=== PATIENT | male | born 1945 | race Caucasian/White ===

== ENCOUNTER 2019-09-07 12:33 | Inpatient (IN) | payer MEDICARE, OTHER ==
[~2019-09-07] VITALS: Ht 182.9 cm; Wt 68.9 kg
[2019-09-07] VITALS (16 sets, daily range): BP systolic 96–126; BP diastolic 57–70
[~2019-09-07 12:33] MED LIST: ASPI-630 PO; ATOR40TA59 PO; CHOL10003 PO; CLOP75TA PO; CYAN25002 SL; FAMO20TA5 PO; GUAI-108 PO; METO25TA4 PO; PANT40TA77 PO
[2019-09-07] MEDS ORDERED: ONDANSETRON PF 4 MG/2 ML VIAL. IV PRN (12:45)
[2019-09-07 12:53] LABS: BASO # 0.1 x10^3/uL (0.0-0.2); BASO % 1 % (0-3); EOS # 0.1 x10^3/uL (0.0-0.7); EOS % 2 % (0-3); HEMATOCRIT 45.8 % (39.0-53.0); HEMOGLOBIN 15.5 g/dL (13.0-17.5); LYMPH % 48 % (24-48); MEAN CORPUSCULAR HEMOGLOBIN 35 pg (25-35); MEAN CORPUSCULAR HGB CONC 34 g/dL (31-37); MEAN CORPUSCULAR VOLUME 103 fL (79-100); MONO # 0.7 x10^3/uL (0.0-1.1); MONO % 8 % (0-9); NEUT # 3.5 x10^3/uL (1.8-7.7); NEUT % 42 % (31-73); PLATELET COUNT 242 x10^3/uL (140-400); RED BLOOD COUNT 4.46 x10^6/uL (4.30-5.70); RED CELL DISTRIBUTION WIDTH 14.5 % (11.5-14.5); WHITE BLOOD COUNT 8.4 x10^3/uL (4.0-11.0)
--- NOTE | 2019-09-07 12:57 | PHYS DOC ---
Past Medical History Past Medical History: GERD, High Cholesterol, Hypertension Past Surgical History: Appendectomy Additional Past Surgical Histo: CARDIAC STENT PLACEMENT Alcohol Use: Occasionally Drug Use: None Adult General HPI HPI Patient is a 74 year old male who was brought here by EMS due to chest pain and trouble breathing started about 1 hour ago. EMS did EKG on the field, shown ST elevation in the in the inferior lead, EMS call here, we activated code STEMI. He has history of hypertension, previous coronary disease. No history of diabetes. Patient denies any injury. Patient also complaint of stomach ache. He denies any nausea vomiting. Upon Arrival to room, patient was in obvious distress. All other ROS is negative unless otherwise noted in HPI Review of Systems Review of Systems See above Current Medications Current Medications Allergies Allergies Allergies Coded Allergies Type Severity Reaction Last Updated Verified No Known Drug Allergies 10/06/16 No Physical Exam Physical Exam See above Constitutional: Well developed, well nourished, in moderate acute distress, appeared pale. HENT: Normocephalic, atraumatic, bilateral external ears normal, oropharynx moist, no oral exudates, nose normal. [] Eyes: PERRLA, EOMI, conjunctiva normal, no discharge. [] Neck: Normal range of motion, no tenderness, supple, no stridor. [] Cardiovascular:Heart rate regular rhythm, no murmur [] Lungs & Thorax: Bilateral breath sounds clear to auscultation [] Abdomen: Bowel sounds normal, soft, no tenderness, no masses, no pulsatile masses. [] Skin: Warm, dry, no erythema, no rash. [] Back: No tenderness, no CVA tenderness. [] Extremities: No tenderness, no cyanosis, no clubbing, ROM intact, no edema. [] Neurologic: Alert and oriented X 3, normal motor function, normal sensory function, no focal deficits noted. [] Psychologic: Affect normal, judgement normal, mood normal. [] Current Patient Data Vital Signs Vital Signs Date Time Temp Pulse Resp B/P (MAP) Pulse Ox O2 Delivery O2 Flow Rate FiO2 09/07/19 12:33 94.4 72 34 118/66 (83) 99 Nasal Cannula 6.0 94.4 Lab Values Laboratory Tests Test 09/07/19 12:40 White Blood Count 8.4 x10^3/uL (4.0-11.0) Red Blood Count 4.46 x10^6/uL (4.30-5.70) Hemoglobin 15.5 g/dL (13.0-17.5) Hematocrit 45.8 % (39.0-53.0) Mean Corpuscular Volume 103 fL (79-100) H Mean Corpuscular Hemoglobin 35 pg (25-35) Mean Corpuscular Hemoglobin Concent 34 g/dL (31-37) Red Cell Distribution Width 14.5 % (11.5-14.5) Platelet Count 242 x10^3/uL (140-400) Neutrophils (%) (Auto) 42 % (31-73) Lymphocytes (%) (Auto) 48 % (24-48) Monocytes (%) (Auto) 8 % (0-9) Eosinophils (%) (Auto) 2 % (0-3) Basophils (%) (Auto) 1 % (0-3) Neutrophils # (Auto) 3.5 x10^3/uL (1.8-7.7) Lymphocytes # (Auto) 4.0 x10^3/uL (1.0-4.8) Monocytes # (Auto) 0.7 x10^3/uL (0.0-1.1) Eosinophils # (Auto) 0.1 x10^3/uL (0.0-0.7) Basophils # (Auto) 0.1 x10^3/uL (0.0-0.2) Prothrombin Time 12.2 SEC (11.7-14.0) Prothrombin Time INR 0.9 (0.8-1.1) Activated Partial Thromboplast Time 26 SEC (24-38) Sodium Level 139 mmol/L (136-145) Potassium Level 4.2 mmol/L (3.5-5.1) Chloride Level 102 mmol/L (98-107) Carbon Dioxide Level 21 mmol/L (21-32) Anion Gap 16 (6-14) H Blood Urea Nitrogen 11 mg/dL (8-26) Creatinine 1.2 mg/dL (0.7-1.3) Estimated GFR (Cockcroft-Gault) 59.3 BUN/Creatinine Ratio 9 (6-20) Glucose Level 140 mg/dL (70-99) H Calcium Level 9.1 mg/dL (8.5-10.1) Magnesium Level 2.0 mg/dL (1.8-2.4) Total Bilirubin 0.5 mg/dL (0.2-1.0) Aspartate Amino Transferase (AST) 15 U/L (15-37) Alanine Aminotransferase (ALT) 15 U/L (16-63) L Alkaline Phosphatase 97 U/L (46-116) Troponin I Quantitative < 0.017 ng/mL (0.000-0.055) BC-Wni-Q-Type Natriuretic Peptide 203 pg/mL (0-124) H Total Protein 7.6 g/dL (6.4-8.2) Albumin 3.8 g/dL (3.4-5.0) Albumin/Globulin Ratio 1.0 (1.0-1.7) Lipase 134 U/L (73-393) Laboratory Tests 09/07/19 12:40 Laboratory Tests 09/07/19 12:40 EKG EKG EKG WAS READ BY THIS PHYSICIAN AT 1239, RATE OF 70 BPM, ST SEGMENT ELEVATION IN II, III, AVF, WITH SEGMENT DEPRESSION IN V2, V3, V4, V5, V6 Radiology/Procedures Radiology/Procedures [] Course & Med Decision Making Course & Med Decision Making Pertinent Labs and Imaging studies reviewed. (See chart for details) EKG was shown STEMI, ECOLOGICAL MODEL[employer] TE[employer] AND [employer], Dr. Alba WAS presented , took patient to labor operator urgently. Dragon Disclaimer Dragon Disclaimer This electronic medical record was generated, in whole or in part, using a voice recognition dictation system. Departure Departure Impression: Primary Impression: STEMI (ST elevation myocardial infarction) Disposition: 09 ADMITTED INPATIENT Admitting Physician: CAMMIE FRAGOSO) Condition: STABLE Referrals: Brooke PANDA MD (PCP) SALIMA MERRITT DO Sep 07, 2019 12:57
[2019-09-07 13:01] LABS: PROTHROMBIN TIME PATIENT 12.2 SEC (11.7-14.0)
[2019-09-07] MEDS ORDERED: ATROPINE 1 MG/10 ML DISP.SYRINGE. ONE (13:01)
[2019-09-07 13:03] LABS: CALCIUM 9.1 mg/dL (8.5-10.1); CREATININE 1.2 mg/dL (0.7-1.3); GFR 59.3; POTASSIUM 4.2 mmol/L (3.5-5.1)
[2019-09-07] MEDS ORDERED: TIROFIBAN 12.5MG -0.9% NS 250 ML IV ONE (13:06)
[2019-09-07 13:09] LABS: ALBUMIN 3.8 g/dL (3.4-5.0); TOTAL BILIRUBIN 0.5 mg/dL (0.2-1.0); TOTAL PROTEIN 7.6 g/dL (6.4-8.2)
[2019-09-07] MEDS ORDERED: TIROFIBAN 12.5MG -0.9% NS 250 ML IV PRN (13:15)
[2019-09-07] MEDS ORDERED: MIDAZOLAM HCL/PF 2 MG/2 ML VIAL. IV ONE (13:15)
[2019-09-07] MEDS ORDERED: HEPARIN for IV BOLUS 10,000 UNIT/10 ML VIAL. IART ONE (13:15)
[2019-09-07] MEDS ORDERED: HEPARIN for IV BOLUS 10,000 UNIT/10 ML VIAL. IV ONE (13:15)
[2019-09-07] MEDS ORDERED: NITROGLYCERIN 200 MCG/2 ML SYRINGE FOR CATH/VASC LAB. IART ONE (13:15)
[2019-09-07] MEDS ORDERED: IODIXANOL 320 MG/ML 100 ML VIAL. IART ONE (13:15)
[2019-09-07] MEDS ORDERED: fentaNYL PF VIAL 100 MCG/2 ML VIAL IV ONE (13:15)
[2019-09-07] MEDS ORDERED: VERAPAMIL 5 MG/2 ML VIAL. IART ONE (13:15)
[2019-09-07] MEDS ORDERED: CONTRAST GIVEN. MC PRN (13:30)
[2019-09-07] MEDS ORDERED: IV NORMAL SALINE 1000ML BAG 1,000 ML IV ONE (13:30)
[2019-09-07] MEDS ORDERED: NITROGLYCERIN 200 MCG/2 ML SYRINGE FOR CATH/VASC LAB. ICAR ONE (13:30)
--- NOTE | 2019-09-07 13:31 | EKG ---
[facility] [address] [place] [address] Test Date: 2019-09-07 Test Time: 12:36:32 Pat Name: YAEL QUICK Department: Room: Gender: M Forming Machine Operator: : [id number] Requested By: SALIMA MERRITT Order Number: [id number] Reading MD: Measurements Intervals [place] Rate: 70 P: CT: QRS: 88 QRSD: 102 T: 111 QT: 380 QTc: 413 Interpretive Statements ATRIAL FLUTTER RVH WITH REPOLARIZATION ABNORMALITY ST-T ELEVATION, CONSIDER ACUTE INFERIOR INFARCT ABNORMAL ECG RI6.01 No previous ECG available for comparison
[2019-09-07] MEDS ORDERED: PRASUGREL 10 MG TABLET. PO ONE (13:45)
[2019-09-07] MEDS ORDERED: PRASUGREL 10 MG TABLET. ONE (13:54)
[2019-09-07] MEDS ORDERED: MIDAZOLAM HCL/PF 2 MG/2 ML VIAL. ONE (14:22)
[2019-09-07] MEDS ORDERED: fentaNYL PF VIAL 100 MCG/2 ML VIAL ONE (14:22)
[2019-09-07] MEDS ORDERED: VERAPAMIL 5 MG/2 ML VIAL. ONE (14:22)
[2019-09-07] MEDS ORDERED: NITROGLYCERIN 200 MCG/2 ML SYRINGE FOR CATH/VASC LAB. ONE (14:22)
[2019-09-07] MEDS ORDERED: HEPARIN for IV BOLUS 10,000 UNIT/10 ML VIAL. ONE (14:22)
--- NOTE | 2019-09-07 14:45 | NUR ---
Pt admitted to room 115 from the laborer driver via bed. Pt denies chest pain at this time. Connected to monitor, VSS, SR. TR band on Right wrist with 9ml of air in the bladder. Area is clean and dry. Aggristat infusing per protocol for the next 18 hours. Family at the bedside.
--- NOTE | 2019-09-07 14:56 | CARD ---
MR#: [id number] Date of Study: 09/07/2019 Ordering Physician: OTTO ANGELO, Referring Physician: OTTO ANGELO, Tech: Jann Oconnell APPROVED REPORT Technologist: Jann Oconnell Nurse: Ting Bright R.N. Procedure(s) performed: fl time: 11 mins dose: 83 gy/cm2 contrast: 106 ml moderate sedation: 63 mins C, Coronary angiography PCI of the RCA HISTORY The patient is a 74 year-old male with a history of : coronary artery disease, tobacco history() , hy pertension, dyslipidemia. INDICATION The indication(s) include : STEMI . [facility] Clinical Frailty Scale [facility] Clinical Frailty Scale: Moderately Frail Heart Failure Heart Failure: Yes If Yes, Newly Diagnosed: No If Yes, HF Type: Diastolic If Yes, NYHA Class: Class III PROCEDURE NARRATIVE CLINICAL INDICATION: STEMI 74-year-old man who presented with classic anginal chest pain for approximately 1 hour prior to admis tom who was noted to have inferior ST elevation by EKG. Due to the patient's confusion emergent verb al consent was obtained from the patient's daughter and he was taken to the catheterization laborator y urgently. INFORMED CONSENT: After explaining the risks and benefits of the procedure and alternatives, informed consent was obtained. A timeout was performed confirming the patient's name, date of , procedure, and site of procedur e. All necessary personnel were wearing the appropriate protective equipment and radiation monitor d evices. (See nursing notes for medications administered). ACCESS: The right wrist was sterilely prepped and draped in the usual fashion. The right wrist was infiltrat ed with 1 mL of 2% lidocaine for subcutaneous anesthesia. A 6 Italian Terumo glide sheath was inserte d into the right radial artery without difficulty. CORONARY ANGIOGRAPHY: Right and left coronary angiography was performed using a JR4 guide catheter. Left ventricular end diastolic pressure was obtained with a JR4 guide catheter and pullback was performed. All catheter exchanges and advancements were performed over a guidewire. FINDINGS: HEMODYNAMICS: LVEDP 15 mm Hg No gradient on LV to aortic pullback. AO: 100/50 LEFT VENTRICULOGRAM: Deferred due to renal insufficiency. Echocardiogram pending CORONARY ANGIOGRAPHY: LM is a large caliber vessel with normal angiographic appearance. LAD is a large caliber vessel with mild luminal irregularities. D1/D2 are small caliber vessels with normal angiographic apeparance. LCx is a moderate caliber non-dominant vessel with mild to moderate diffuse disease in the proximal s egment of up to 50%. There is an occluded stent at the distal LCx in a small caliber portion of the v essel. OM1 is a moderate caliber vessel with proximal 30% ISR of a previously placed stent. RCA is a large caliber dominant vessel with heavily calcific disease with a mid 100% occlusion. This was the culprit lesion. RPDA and RPL are moderate caliber vessels with normal angiographic appearance. INTERVENTIONAL TECHNIQUE: PCI of the RCA Heparin and tirofiban were used for anticoagulation. Through a 6 Italian JR4 guide catheter a 0.014 in ch pro-water wire was advanced to the distal RPDA. Next, balloon angioplasty was performed in sequent ial fashion with a 3.0 3.25 and 3.5 mm noncompliant balloons. The lesions were then stented with over lapping 3.25 x 38 and 3.5 x 28 [place] drug-eluting stents. The stents were then postdilated with 3.5 noncompliant balloon at 18 jameel. Final angiography demonstrated excellent stent expansion with THOMPSON-3 flow in the RCA. Due to complete resolution of the patient's chest pain, lack of any significant ST or T-wave changes and a chronic appearance of the distal left circumflex stent in a small caliber portion of the vessel further intervention was deferred on this vessel in favor of continued medical therapy. CLOSURE: At case completion the right radial sheath was removed and a Terumo radial band was applied with 13 m l of air. COMPLICATIONS: The patient tolerated the procedure well and there were no immediate complications. Complex case due to significant calcification and STEMI THOMPSON Flow THOMPSON Flow (Pre-Intervention): THOMPSON-0 THOMPSON Flow (Post-Intervention): THOMPSON-3 Conclusion 1. Inferior/Posterior STEMI 2. Normal left sided filling pressures. 3. Successful complex PCI of the RCA with implantation of overlapping 3.25/38 and 3.5/28 Xience Sierr a SON, post-dilated with a 3.5 mm NC balloon Recommendations ASA 81mg daily Prasugrel 10mg daily High dose statin therapy Cardiac rehab Consider staged PCI of the Lcx SYSTEMS INTEGRATION MANAGER based on symptoms. Signed by : Otto Angelo, Electronically Approved : 09/07/2019 14:56:35
--- NOTE | 2019-09-07 15:07 | RAD ---
PORTABLE CHEST 1V History: Chest pain Comparison: None. Findings: No consolidation or pleural effusion. Normal heart size. No pneumothorax. Impression: 1. No acute cardiopulmonary process. Electronically signed by: Jone Diana DO (09/07/2019 3:04 PM) [facility]
[2019-09-07] MEDS ORDERED: RANI-376 PO (16:16)
[2019-09-07] MEDS ORDERED: CYAN250012 PO (16:16)
[2019-09-07] MEDS ORDERED: CETI10TA22 PO (16:16)
--- NOTE | 2019-09-07 16:42 | CARD ---
MR#: [id number] Date of Study: 09/07/2019 Ordering Physician: CECILIA HOWELL, Referring Physician: CECILIA HOWELL, Tech: Nanda Lloyd [facility] APPROVED REPORT EXAM: Two-dimensional and M-mode echocardiogram with Doppler and color Doppler. Other Information Quality : AverageHR: 70bpm Rhythm : NSRTechnically limited study due to body habitus. INDICATION STEMI 2D DIMENSIONS RVDd3.0 (2.9-3.5cm)Left Atrium(2D)2.6 (1.6-4.0cm) IVSd1.5 (0.7-1.1cm)Aortic Root(2D)3.3 (2.0-3.7cm) LVDd3.6 (3.9-5.9cm)LVOT Diameter2.1 (1.8-2.4cm) PWd1.2 (0.7-1.1cm)LVDs2.9 (2.5-4.0cm) FS (%) 19.5 %SV21.9 ml LVEF(%)40.9 (>50%) M-Mode DIMENSIONS Left Atrium(MM)2.20 (2.5-4.0cm)Aortic Root3.30 (2.2-3.7cm) Aortic Valve AoV Peak Ray.94.4cm/sAoV VTI19.8cm AO Peak GR.3.6mmHgLVOT VTI 16.51cm AO Mean GR.2mmHgAVA (VTI)2.80cm2 AI P 1/2 Oocp067vr Mitral Valve MV E Ouhtocla91.4cm/sMV DECEL XEAC003du MV A Chisruti96.0cm/sE/A Ratio1.2 MV A Zelgchnr44nd TDI Lateral E' P. V9.14cm/sMedial E' P. V7.66cm/s E/Lateral E'6.9E/Medial E'8.3 LEFT VENTRICLE The left ventricle is normal size. There is mild concentric left ventricular hypertrophy. The systoli c function is mildly impaired. The Ejection Fraction is 45-50%. There is hypokinesis in the basal to mid inferior wall. Transmitral Doppler flow pattern is Grade I-abnormal relaxation pattern. RIGHT VENTRICLE The right ventricle is mildly to moderately dilated. There is normal right ventricular wall thickness . The right ventricular systolic function is normal. ATRIA The left atrium size is normal. The right atrium size is normal. The interatrial septum is intact wit h no evidence for an atrial septal defect or patent foramen ovale as noted on 2-D or Doppler imaging. AORTIC VALVE The aortic valve is probably trileaflet. The aortic valve is not well visualized. Doppler and Color F low revealed mild aortic regurgitation. There is no significant aortic valvular stenosis. There is no aortic valvular vegetation. MITRAL VALVE The mitral valve is thickened but opens well. There is no evidence of mitral valve prolapse. There is no mitral valve stenosis. Doppler and Color-flow revealed trace mitral regurgitation. TRICUSPID VALVE The tricuspid valve is normal in structure and function. Doppler and Color Flow revealed no tricuspid valve regurgitation noted. There is no tricuspid valve prolapse or vegetation. There is no tricuspid valve stenosis. PULMONIC VALVE The pulmonic valve is not well visualized. GREAT VESSELS The aortic root is normal in size. The ascending aorta is normal in size. The IVC is normal in size a nd collapses >50% with inspiration. PERICARDIAL EFFUSION There is no evidence of significant pericardial effusion. Critical Notification Critical Value: No <Conclusion> There is hypokinesis in the basal to mid inferior wall. The right ventricle is mildly to moderately dilated. The systolic function is mildly impaired. The Ejection Fraction is 45-50%. Signed by : Yaw Alba, Electronically Approved : 09/07/2019 16:41:35
--- NOTE | 2019-09-07 17:55 | HP ---
ADMIT DATE: 09/07/2019 CHIEF COMPLAINT: Chest pain. HISTORY OF PRESENT ILLNESS: The patient is a pleasant 74-year-old male who presented to the ER with chest pain. He had trouble breathing as well. This has been occurring for an hour or 2; described it as chest pressure. An EKG was done, which showed massive ST elevations in the inferior leads and reciprocal ST depression in the augmented leads. The patient is going emergently to the labor relations director where he is currently being examined. PAST MEDICAL HISTORY: GERD, hypertension, hyperlipidemia, appendectomy, cardiac stents with coronary artery disease. ALLERGIES: None. FAMILY HISTORY: Coronary disease. SOCIAL HISTORY: He does not drink, smoke or take drugs. MEDICATIONS: Reviewed, please refer to the MRAD. REVIEW OF SYSTEMS: Unable to obtain. The patient is semi-sedated on the table getting cardiac catheterization. PHYSICAL EXAMINATION: VITAL SIGNS: Stable. GENERAL: He is semi-sedated. SKIN: No obvious rashes. NECK: No JVD. Further physical exam was deferred to preserve the sterile field. ASSESSMENT AND PLAN: Acute myocardial infarction. The patient has been admitted. He is in the labor relations director. Dr. Alba is currently placing a stent in the right coronary. I discussed the case with Dr. Alba as well and the nurses as well. We are going to get him to the ICU after this procedure. He will need antiplatelet therapy, statins, beta blockade, RAE inhibitors, p.r.n. nitro, p.r.n. morphine. Continue our serial enzymes, but so far his initial troponin was negative. PROGNOSIS: Guarded. TOTAL TIME: 32 minutes. RIC HORTON DO DR: EFREN/ta JOB#: [id number] / [id number]
--- NOTE | 2019-09-07 23:59 | PDOC2 ---
CARDIOLOGY CONSULT NOTE CHEIF COMPLAINT: Late entry Chest pain HPI: 74 y.o man presented to the hospital with severe chest pain. found to have i nferior/posterior stemi, taken emergently to entry level lab technician. At baseline patient does not usually see physicians. PMHX: CAD HTN DLP Tobacco abuse SOCHX: +alcohol use and tobacco abuse. Lives by himself. Has two daughters FAMHX: NC CURRENT MEDS: Current Medications Medications (Trade) Dose Ordered Sig/Rick Route PRN Reason Start Time Stop Time Status Last Admin Dose Admin Nitroglycerin (Nitroglycerin) 200 mcg 1X ONCE IART 09/07/19 13:15 09/07/19 13:21 DC 09/07/19 14:00 Verapamil HCl (Verapamil) 2.5 mg 1X ONCE IART 09/07/19 13:15 09/07/19 13:21 DC 09/07/19 14:03 Heparin Sodium (Porcine) (Heparin Sodium) 2,500 unit 1X ONCE IART 09/07/19 13:15 09/07/19 13:21 DC 09/07/19 14:03 Heparin Sodium/ Sodium Chloride (HEPARIN for ARTERIAL LINE FLUSH) 1,000 unit 1X ONCE IART 09/07/19 13:15 09/07/19 13:21 DC 09/07/19 13:59 Heparin Sodium/ Sodium Chloride (HEPARIN for ARTERIAL LINE FLUSH) 1,000 unit 1X ONCE IART 09/07/19 13:15 09/07/19 13:21 DC 09/07/19 13:59 Midazolam HCl (Versed) 2 mg 1X ONCE IV 09/07/19 13:15 09/07/19 13:21 DC 09/07/19 14:00 Fentanyl Citrate (Fentanyl 2ml Vial) 100 mcg 1X ONCE IV 09/07/19 13:15 09/07/19 13:21 DC 09/07/19 14:01 Iodixanol (Visipaque 320) 100 ml 1X ONCE IART 09/07/19 13:15 09/07/19 13:21 DC 09/07/19 14:02 Heparin Sodium (Porcine) (Heparin Sodium) 5,000 unit 1X ONCE IV 09/07/19 13:15 09/07/19 13:21 DC 09/07/19 14:04 Tirofiban/Sodium Chloride 250 ml @ 0 mls/hr CONT PRN IV PER PROTOCOL 09/07/19 13:15 09/08/19 07:14 09/07/19 14:02 Nitroglycerin (Nitroglycerin) 200 mcg 1X ONCE ICAR 09/07/19 13:30 09/07/19 13:31 DC 09/07/19 14:00 Sodium Chloride 1,000 ml @ 1,000 mls/hr 1X ONCE IV 09/07/19 13:30 09/07/19 14:29 DC 09/07/19 13:59 Prasugrel (Effient) 60 mg 1X ONCE PO 09/07/19 13:45 09/07/19 13:46 DC 09/07/19 14:01 ALLERGIES: Allergies Coded Allergies Type Severity Reaction Last Updated Verified No Known Drug Allergies 10/06/16 No ROS: Negative for 08/13 systems reviewed unless otherwise noted above in HPI PHYSICAL EXAM: Vital Signs/I&O: Vital Signs Date Time Temp Pulse Resp B/P (MAP) Pulse Ox O2 Delivery O2 Flow Rate FiO2 09/07/19 23:00 77 16 115/59 (77) 96 Room Air 09/07/19 20:00 97.8 97.8 09/07/19 14:01 2.0 Physical Exam: Appearing older than stated age. Moderate distress and confused from chest pain tachypneic Coarse breath sounds tachycardic No edema. 1+ pulses DIAGNOSTIC TESTING: labs reviewed cath with 3V cad, see cath report for full details. Lab Laboratory Tests Test 09/07/19 12:40 White Blood Count 8.4 x10^3/uL (4.0-11.0) Red Blood Count 4.46 x10^6/uL (4.30-5.70) Hemoglobin 15.5 g/dL (13.0-17.5) Hematocrit 45.8 % (39.0-53.0) Mean Corpuscular Volume 103 fL (79-100) H Mean Corpuscular Hemoglobin 35 pg (25-35) Mean Corpuscular Hemoglobin Concent 34 g/dL (31-37) Red Cell Distribution Width 14.5 % (11.5-14.5) Platelet Count 242 x10^3/uL (140-400) Neutrophils (%) (Auto) 42 % (31-73) Lymphocytes (%) (Auto) 48 % (24-48) Monocytes (%) (Auto) 8 % (0-9) Eosinophils (%) (Auto) 2 % (0-3) Basophils (%) (Auto) 1 % (0-3) Neutrophils # (Auto) 3.5 x10^3/uL (1.8-7.7) Lymphocytes # (Auto) 4.0 x10^3/uL (1.0-4.8) Monocytes # (Auto) 0.7 x10^3/uL (0.0-1.1) Eosinophils # (Auto) 0.1 x10^3/uL (0.0-0.7) Basophils # (Auto) 0.1 x10^3/uL (0.0-0.2) Prothrombin Time 12.2 SEC (11.7-14.0) Prothromb Time International Ratio 0.9 (0.8-1.1) Activated Partial Thromboplast Time 26 SEC (24-38) Sodium Level 139 mmol/L (136-145) Potassium Level 4.2 mmol/L (3.5-5.1) Chloride Level 102 mmol/L (98-107) Carbon Dioxide Level 21 mmol/L (21-32) Anion Gap 16 (6-14) H Blood Urea Nitrogen 11 mg/dL (8-26) Creatinine 1.2 mg/dL (0.7-1.3) Estimated GFR (Cockcroft-Gault) 59.3 BUN/Creatinine Ratio 9 (6-20) Glucose Level 140 mg/dL (70-99) H Calcium Level 9.1 mg/dL (8.5-10.1) Total Bilirubin 0.5 mg/dL (0.2-1.0) Aspartate Amino Transf (AST/SGOT) 15 U/L (15-37) Alkaline Phosphatase 97 U/L (46-116) Total Protein 7.6 g/dL (6.4-8.2) Albumin 3.8 g/dL (3.4-5.0) Albumin/Globulin Ratio 1.0 (1.0-1.7) Lipase 134 U/L (73-393) Laboratory Tests 09/07/19 12:40 ASSESSMENT: 1. Inferior STEMI 2. CAD 3. HTN PLAN: 1. Successful PCI of the RCA. 2. Continue asa, statin, prasugrel. 3. cardiac rehab referral. Supportive care. Discussed with family. > 60 min cc time OTTO ANGELO MD Sep 07, 2019 23:59
[2019-09-08] VITALS (14 sets, daily range): BP systolic 105–122; BP diastolic 60–71
--- NOTE | 2019-09-08 11:50 | PDOC ---
[facility] PROGRESS NOTE Chief Complaint Chief Complaint Chest pain, trouble breathing History of Present Illness History of Present Illness Patient is a 74 year old male who was brought here by EMS due to chest pain and trouble breathing started about 1 hour ago. EMS did EKG on the field, shown ST elevation in the in the inferior lead, EMS call here, we activated code STEMI. He has history of hypertension, previous coronary disease. No history of diabetes. Patient denies any injury. Patient also complaint of stomach ache. He denies any nausea vomiting. 09/08: Patient seen and examined in ICU. Patient is post cardiac catheterization day 1. Patient is alert and oriented X3 and is sitting up in the bedside chair speaking frequently. DW hugo. Vitals/I&O Vitals/I&O: Vital Signs Date Time Temp Pulse Resp B/P (MAP) Pulse Ox O2 Delivery O2 Flow Rate FiO2 09/08/19 09:00 95 29 109/60 (76) 95 Room Air 09/08/19 08:00 98.0 98.0 09/07/19 14:01 2.0 I & O 09/07/19 09/07/19 09/08/19 15:00 23:00 07:00 Intake Total 305 ml 535 ml Output Total 0 ml 0 ml 950 ml Balance 0 ml 305 ml -415 ml Physical Exam General: Alert, Oriented X3, Cooperative, No acute distress Heart: Regular rate, Normal S1, Normal S2, No murmurs Lungs: Clear Abdomen: Normal bowel sounds, Soft, No tenderness, No hepatosplenomegaly Extremities: No clubbing, No cyanosis, No edema, Normal pulses Skin: No rashes, No breakdown, No significant lesion Labs Labs: Laboratory Tests Test 09/07/19 12:40 White Blood Count 8.4 x10^3/uL (4.0-11.0) Red Blood Count 4.46 x10^6/uL (4.30-5.70) Hemoglobin 15.5 g/dL (13.0-17.5) Hematocrit 45.8 % (39.0-53.0) Mean Corpuscular Volume 103 fL (79-100) Mean Corpuscular Hemoglobin 35 pg (25-35) Mean Corpuscular Hemoglobin Concent 34 g/dL (31-37) Red Cell Distribution Width 14.5 % (11.5-14.5) Platelet Count 242 x10^3/uL (140-400) Neutrophils (%) (Auto) 42 % (31-73) Lymphocytes (%) (Auto) 48 % (24-48) Monocytes (%) (Auto) 8 % (0-9) Eosinophils (%) (Auto) 2 % (0-3) Basophils (%) (Auto) 1 % (0-3) Neutrophils # (Auto) 3.5 x10^3/uL (1.8-7.7) Lymphocytes # (Auto) 4.0 x10^3/uL (1.0-4.8) Monocytes # (Auto) 0.7 x10^3/uL (0.0-1.1) Eosinophils # (Auto) 0.1 x10^3/uL (0.0-0.7) Basophils # (Auto) 0.1 x10^3/uL (0.0-0.2) Prothrombin Time 12.2 SEC (11.7-14.0) Prothromb Time International Ratio 0.9 (0.8-1.1) Activated Partial Thromboplast Time 26 SEC (24-38) Sodium Level 139 mmol/L (136-145) Potassium Level 4.2 mmol/L (3.5-5.1) Chloride Level 102 mmol/L (98-107) Carbon Dioxide Level 21 mmol/L (21-32) Anion Gap 16 (6-14) Blood Urea Nitrogen 11 mg/dL (8-26) Creatinine 1.2 mg/dL (0.7-1.3) Estimated GFR (Cockcroft-Gault) 59.3 BUN/Creatinine Ratio 9 (6-20) Glucose Level 140 mg/dL (70-99) Calcium Level 9.1 mg/dL (8.5-10.1) Magnesium Level 2.0 mg/dL (1.8-2.4) Total Bilirubin 0.5 mg/dL (0.2-1.0) Aspartate Amino Transf (AST/SGOT) 15 U/L (15-37) Alanine Aminotransferase (ALT/SGPT) 15 U/L (16-63) Alkaline Phosphatase 97 U/L (46-116) Troponin I Quantitative < 0.017 ng/mL (0.000-0.055) VT-Keo-N-Type Natriuretic Peptide 203 pg/mL (0-124) Total Protein 7.6 g/dL (6.4-8.2) Albumin 3.8 g/dL (3.4-5.0) Albumin/Globulin Ratio 1.0 (1.0-1.7) Lipase 134 U/L (73-393) Review of Systems Review of Systems: Patient denies N/V and numbness and tingling. Assessment and Plan Assessmemt and Plan Problems Medical Problems: (1) STEMI (ST elevation myocardial infarction) Status: Acute Assessment: Chest pain, trouble breathing, STEMI Plan: 1. ICU monitoring 2. Cardiac monitoring 3. Begin aspirin, statin, beta porter, and RAE inhibitor 4. Discharge when OK with cardiology 5. DVT prophylaxis 6. Full code Comment Review of Relevant I have reviewed the following items carlo (where applicable) has been applied. Medications: Current Medications Medications (Trade) Dose Ordered Sig/Rick Route PRN Reason Start Time Stop Time Status Last Admin Dose Admin Nitroglycerin (Nitroglycerin) 200 mcg 1X ONCE IART 09/07/19 13:15 09/07/19 13:21 DC 09/07/19 14:00 Verapamil HCl (Verapamil) 2.5 mg 1X ONCE IART 09/07/19 13:15 09/07/19 13:21 DC 09/07/19 14:03 Heparin Sodium (Porcine) (Heparin Sodium) 2,500 unit 1X ONCE IART 09/07/19 13:15 09/07/19 13:21 DC 09/07/19 14:03 Heparin Sodium/ Sodium Chloride (HEPARIN for ARTERIAL LINE FLUSH) 1,000 unit 1X ONCE IART 09/07/19 13:15 09/07/19 13:21 DC 09/07/19 13:59 Heparin Sodium/ Sodium Chloride (HEPARIN for ARTERIAL LINE FLUSH) 1,000 unit 1X ONCE IART 09/07/19 13:15 09/07/19 13:21 DC 09/07/19 13:59 Midazolam HCl (Versed) 2 mg 1X ONCE IV 09/07/19 13:15 09/07/19 13:21 DC 09/07/19 14:00 Fentanyl Citrate (Fentanyl 2ml Vial) 100 mcg 1X ONCE IV 09/07/19 13:15 09/07/19 13:21 DC 09/07/19 14:01 Iodixanol (Visipaque 320) 100 ml 1X ONCE IART 09/07/19 13:15 11/8/19 13:21 DC 09/07/19 14:02 Heparin Sodium (Porcine) (Heparin Sodium) 5,000 unit 1X ONCE IV 09/07/19 13:15 09/07/19 13:21 DC 09/07/19 14:04 Tirofiban/Sodium Chloride 250 ml @ 0 mls/hr CONT PRN IV PER PROTOCOL 09/07/19 13:15 09/08/19 07:14 DC 09/07/19 14:02 Nitroglycerin (Nitroglycerin) 200 mcg 1X ONCE ICAR 09/07/19 13:30 09/07/19 13:31 DC 09/07/19 14:00 Sodium Chloride 1,000 ml @ 1,000 mls/hr 1X ONCE IV 09/07/19 13:30 09/07/19 14:29 DC 09/07/19 13:59 Prasugrel (Effient) 60 mg 1X ONCE PO 09/07/19 13:45 09/07/19 13:46 DC 09/07/19 14:01 RIC HORTON III DO Sep 08, 2019 11:50
[2019-09-08] MEDS: ASPIRIN ENTERIC COATED 325 MG TABLET.DR. PO SCH (12:24)
[2019-09-08] MEDS: PRASUGREL 10 MG TABLET. PO SCH (12:24)
[2019-09-08] MEDS: METOPROLOL TART IMMED RELEASE 25 MG TABLET. PO SCH ×2 (12:25→21:39)
--- NOTE | 2019-09-08 13:12 | PDOC ---
PROGRESS NOTES Subjective Subjective Patient seen and examined The patient looks and feels well this morning. Objective Objective Vital Signs Date Time Temp Pulse Resp B/P (MAP) Pulse Ox O2 Delivery O2 Flow Rate FiO2 09/08/19 12:25 81 103/71 09/08/19 09:00 29 95 Room Air 09/08/19 08:00 98.0 98.0 09/07/19 14:01 2.0 Intake and Output 09/08/19 07:00 Intake Total 840 ml Output Total 950 ml Balance -110 ml Intake Oral 740 ml IV Total 100 ml Output Urine Total 950 ml Physical Exam Abdomen: Normal bowel sounds Heart: Regular rate Extremities: No edema General: No acute distress HEENT: Atraumatic Lungs: Clear to auscultation Assessment Assessment Problems Medical Problems: (1) STEMI (ST elevation myocardial infarction) Status: Acute 1. ST elevated myocardial infarction. Opening of an acutely closed right coronary artery. Doing well overnight. Ejection fraction of 45-50%. Will increase activities. On dual antiplatelet medications. We'll start on low dose beta blockers and statin. 2. Probable hyperlipidemia. We'll recheck lab. Statin as above. Comment Review of Relevant I have reviewed the following items carlo (where applicable) has been applied. Labs Laboratory Tests Test 09/07/19 12:40 White Blood Count 8.4 x10^3/uL (4.0-11.0) Red Blood Count 4.46 x10^6/uL (4.30-5.70) Hemoglobin 15.5 g/dL (13.0-17.5) Hematocrit 45.8 % (39.0-53.0) Mean Corpuscular Volume 103 fL (79-100) Mean Corpuscular Hemoglobin 35 pg (25-35) Mean Corpuscular Hemoglobin Concent 34 g/dL (31-37) Red Cell Distribution Width 14.5 % (11.5-14.5) Platelet Count 242 x10^3/uL (140-400) Neutrophils (%) (Auto) 42 % (31-73) Lymphocytes (%) (Auto) 48 % (24-48) Monocytes (%) (Auto) 8 % (0-9) Eosinophils (%) (Auto) 2 % (0-3) Basophils (%) (Auto) 1 % (0-3) Neutrophils # (Auto) 3.5 x10^3/uL (1.8-7.7) Lymphocytes # (Auto) 4.0 x10^3/uL (1.0-4.8) Monocytes # (Auto) 0.7 x10^3/uL (0.0-1.1) Eosinophils # (Auto) 0.1 x10^3/uL (0.0-0.7) Basophils # (Auto) 0.1 x10^3/uL (0.0-0.2) Prothrombin Time 12.2 SEC (11.7-14.0) Prothromb Time International Ratio 0.9 (0.8-1.1) Activated Partial Thromboplast Time 26 SEC (24-38) Sodium Level 139 mmol/L (136-145) Potassium Level 4.2 mmol/L (3.5-5.1) Chloride Level 102 mmol/L (98-107) Carbon Dioxide Level 21 mmol/L (21-32) Anion Gap 16 (6-14) Blood Urea Nitrogen 11 mg/dL (8-26) Creatinine 1.2 mg/dL (0.7-1.3) Estimated GFR (Cockcroft-Gault) 59.3 BUN/Creatinine Ratio 9 (6-20) Glucose Level 140 mg/dL (70-99) Calcium Level 9.1 mg/dL (8.5-10.1) Magnesium Level 2.0 mg/dL (1.8-2.4) Total Bilirubin 0.5 mg/dL (0.2-1.0) Aspartate Amino Transf (AST/SGOT) 15 U/L (15-37) Alanine Aminotransferase (ALT/SGPT) 15 U/L (16-63) Alkaline Phosphatase 97 U/L (46-116) Troponin I Quantitative < 0.017 ng/mL (0.000-0.055) AQ-Nnz-B-Type Natriuretic Peptide 203 pg/mL (0-124) Total Protein 7.6 g/dL (6.4-8.2) Albumin 3.8 g/dL (3.4-5.0) Albumin/Globulin Ratio 1.0 (1.0-1.7) Lipase 134 U/L (73-393) Medications Current Medications Ondansetron HCl (Zofran) 4 mg PRN Q8HRS PRN IV NAUSEA/VOMITING; Start 09/07/19 at 12:45; Stop 09/08/19 at 12:44; Status DC Dopamine HCl/ Dextrose 0 ml @ As Directed STK-MED ONCE IV ; Start 09/07/19 at 13:01; Stop 09/07/19 at 13:01; Status DC Atropine Sulfate (ATROPINE 1mg SYRINGE) 1 mg STK-MED ONCE .ROUTE ; Start 09/07/19 at 13:01; Stop 09/07/19 at 13:01; Status DC Tirofiban/Sodium Chloride 250 ml @ As Directed STK-MED ONCE IV ; Start 09/07/19 at 13:06; Stop 09/07/19 at 13:06; Status DC Nitroglycerin (Nitroglycerin) 200 mcg 1X ONCE IART Last administered on 09/07/19at 14:00; Start 09/07/19 at 13:15; Stop 09/07/19 at 13:21; Status DC Verapamil HCl (Verapamil) 2.5 mg 1X ONCE IART Last administered on 09/07/19at 14:03; Start 09/07/19 at 13:15; Stop 09/07/19 at 13:21; Status DC Heparin Sodium (Porcine) (Heparin Sodium) 2,500 unit 1X ONCE IART Last administered on 09/07/19at 14:03; Start 09/07/19 at 13:15; Stop 09/07/19 at 13:21; Status DC Heparin Sodium/ Sodium Chloride (HEPARIN for ARTERIAL LINE FLUSH) 1,000 unit 1X ONCE IART Last administered on 09/07/19at 13:59; Start 09/07/19 at 13:15; Stop 09/07/19 at 13:21; Status DC Heparin Sodium/ Sodium Chloride (HEPARIN for ARTERIAL LINE FLUSH) 1,000 unit 1X ONCE IART Last administered on 09/07/19at 13:59; Start 09/07/19 at 13:15; Stop 09/07/19 at 13:21; Status DC Midazolam HCl (Versed) 2 mg 1X ONCE IV Last administered on 09/07/19at 14:00; Start 09/07/19 at 13:15; Stop 09/07/19 at 13:21; Status DC Fentanyl Citrate (Fentanyl 2ml Vial) 100 mcg 1X ONCE IV Last administered on 09/07/19at 14:01; Start 09/07/19 at 13:15; Stop 09/07/19 at 13:21; Status DC Iodixanol (Visipaque 320) 100 ml 1X ONCE IART Last administered on 09/07/19at 14:02; Start 09/07/19 at 13:15; Stop 09/07/19 at 13:21; Status DC Heparin Sodium (Porcine) (Heparin Sodium) 5,000 unit 1X ONCE IV Last administered on 09/07/19at 14:04; Start 09/07/19 at 13:15; Stop 09/07/19 at 13:21 ; Status DC Tirofiban/Sodium Chloride 250 ml @ 0 mls/hr CONT PRN IV PER PROTOCOL Last administered on 09/07/19at 14:02; Start 09/07/19 at 13:15; Stop 09/08/19 at 07:14; Status DC Info (CONTRAST GIVEN -- Rx MONITORING) 1 each PRN DAILY PRN MC SEE COMMENTS; Start 09/07/19 at 13:30; Stop 09/09/19 at 13:29 Nitroglycerin (Nitroglycerin) 200 mcg 1X ONCE ICAR Last administered on at 14:00; Start 09/07/19 at 13:30; Stop 09/07/19 at 13:31; Status DC Sodium Chloride 1,000 ml @ 1,000 mls/hr 1X ONCE IV Last administered on 09/07/19at 13:59; Start 09/07/19 at 13:30; Stop 09/07/19 at 14:29; Status DC Prasugrel (Effient) 60 mg 1X ONCE PO Last administered on 09/07/19at 14:01; Start 09/07/19 at 13:45; Stop 09/07/19 at 13:46; Status DC Prasugrel (Effient) 10 mg STK-MED ONCE .ROUTE ; Start 09/07/19 at 13:54; Stop 09/07/19 at 13:54; Status DC Fentanyl Citrate (Fentanyl 2ml Vial) 100 mcg STK-MED ONCE .ROUTE ; Start 09/07/19 at 14:22; Stop 09/07/19 at 14:22; Status DC Midazolam HCl (Versed) 2 mg STK-MED ONCE .ROUTE ; Start 09/07/19 at 14:22; Stop 09/07/19 at 14:22; Status DC Heparin Sodium (Porcine) (Heparin Sodium) 10,000 unit STK-MED ONCE .ROUTE ; Start 09/07/19 at 14:22; Stop 09/07/19 at 14:22; Status DC Verapamil HCl (Verapamil) 5 mg STK-MED ONCE .ROUTE ; Start 09/07/19 at 14:22; Stop 09/07/19 at 14:22; Status DC Nitroglycerin (Nitroglycerin) 200 mcg STK-MED ONCE .ROUTE ; Start 09/07/19 at 14:22; Stop 09/07/19 at 14:22; Status DC Prasugrel (Effient) 10 mg DAILYWBKFT PO Last administered on 09/08/19at 12:24; Start 09/08/19 at 11:30 Aspirin (Ecotrin) 325 mg DAILYWBKFT PO Last administered on 09/08/19at 12:24; Start 09/08/19 at 11:30 Metoprolol Tartrate (Lopressor) 12.5 mg BID PO Last administered on 09/08/19at 12:25; Start 09/08/19 at 11:30 Atorvastatin Calcium (Lipitor) 20 mg QHS PO ; Start 09/08/19 at 21:00 Active Scripts Active Clopidogrel (Clopidogrel Bisulfate) 75 Mg Tablet 1 Tab PO DAILY Reported Vitamin B12 (Cyanocobalamin (Vitamin B-12)) 2,500 Mcg Tab.chew 1,000 Mcg PO DAILY Zyrtec (Cetirizine Hcl) 10 Mg Tablet 1 Tab PO DAILY Zantac (Ranitidine Hcl) 150 Mg Tablet 150 Mg PO DAILY Vitamin D3 (Cholecalciferol (Vitamin D3)) 1,000 Unit Tablet 1 Tab PO DAILY Vitals/I & O Vital Sign - Last 24 Hours 09/07/19 09/07/19 09/07/19 09/07/19 14:00 14:01 14:03 14:15 Temp 98.3 98.3 Pulse 94 70 68 Resp 18 21 21 B/P (MAP) 112/67 103/65 (78) Pulse Ox 96 97 100 O2 Delivery Nasal Cannula Nasal Cannula Room Air O2 Flow Rate 2.0 2.0 09/07/19 09/07/19 09/07/19 09/07/19 14:30 14:30 14:45 15:00 Pulse 68 70 70 Resp 14 13 11 B/P (MAP) 96/63 (74) 104/61 (75) 103/62 (76) Pulse Ox 100 100 100 O2 Delivery Room Air Room Air Room Air Room Air 09/07/19 09/07/19 09/07/19 09/07/19 15:30 16:00 16:00 16:30 Temp 97.8 97.8 Pulse 68 68 64 Resp 16 16 22 B/P (MAP) 106/64 (78) 112/63 (79) 104/61 (75) Pulse Ox 99 99 99 O2 Delivery Room Air Room Air Room Air Room Air 09/07/19 09/07/19 09/07/19 09/07/19 17:00 18:00 19:00 20:00 Temp 97.8 97.8 Pulse 66 76 80 88 Resp 13 20 16 18 B/P (MAP) 103/59 (74) 121/70 (87) 111/57 (75) 101/60 (74) Pulse Ox 98 98 97 95 O2 Delivery Room Air Room Air Room Air Room Air 09/07/19 09/07/19 09/07/19 09/07/19 20:00 21:00 22:00 23:00 Pulse 83 81 77 Resp 16 14 16 B/P (MAP) 116/64 (81) 106/57 (73) 115/59 (77) Pulse Ox 96 96 96 O2 Delivery Room Air Room Air Room Air Room Air 09/07/19 09/07/19 09/08/19 09/08/19 23:59 23:59 01:00 02:00 Temp 98.8 98.8 Pulse 80 72 78 Resp 16 14 16 B/P (MAP) 126/68 (87) 105/64 (78) 118/66 (83) Pulse Ox 97 97 96 O2 Delivery Room Air Room Air Room Air Room Air 09/08/19 09/08/19 09/08/19 09/08/19 03:00 04:00 04:00 05:00 Temp 98.8 98.8 Pulse 80 79 78 Resp 16 16 14 B/P (MAP) 117/64 (81) 109/60 (76) 113/65 (81) Pulse Ox 95 95 95 O2 Delivery Room Air Room Air Room Air Room Air 09/08/19 09/08/19 09/08/19 09/08/19 06:00 07:00 07:30 08:00 Temp 98.0 98.0 Pulse 87 76 76 Resp 20 16 16 B/P (MAP) 119/69 (86) 105/66 (79) 122/71 (88) Pulse Ox 96 96 97 O2 Delivery Room Air Room Air Room Air Room Air 09/08/19 09/08/19 09:00 12:25 Pulse 95 81 Resp 29 B/P (MAP) 109/60 (76) 103/71 Pulse Ox 95 O2 Delivery Room Air Intake and Output 09/07/19 09/07/19 09/08/19 15:00 23:00 07:00 Intake Total 305 ml 535 ml Output Total 0 ml 0 ml 950 ml Balance 0 ml 305 ml -415 ml JEAN COTTER MD Sep 08, 2019 13:12
--- NOTE | 2019-09-08 16:59 | NUR ---
Pt transferred to room 244 via wheelchair with all belongings.
[2019-09-08] MEDS ORDERED: ATORVASTATIN CALCIUM 20 MG TABLET PO SCH (21:00)
[2019-09-09 03:00] VITALS: BP 107/69
[2019-09-09 05:44] LABS: CALCIUM 8.3 mg/dL (8.5-10.1); CREATININE 0.8 mg/dL (0.7-1.3); GFR 94.8
[2019-09-09 05:45] LABS: CHOLESTEROL/HDL RATIO 3.1
[2019-09-09 07:42] VITALS: BP 125/61
[2019-09-09 09:01] VITALS: BP 125/61
[2019-09-09] MEDS: PRASUGREL 10 MG TABLET. PO SCH (09:01)
[2019-09-09] MEDS: ASPIRIN ENTERIC COATED 325 MG TABLET.DR. PO SCH (09:01)
[2019-09-09] MEDS: METOPROLOL TART IMMED RELEASE 25 MG TABLET. PO SCH (09:01)
--- NOTE | 2019-09-09 09:28 | PDOC ---
PROGRESS NOTES Subjective Subjective Patient seen and examined The patient looks and feels well. Objective Objective Vital Signs Date Time Temp Pulse Resp B/P (MAP) Pulse Ox O2 Delivery O2 Flow Rate FiO2 09/09/19 09:01 78 125/61 09/09/19 07:42 98.1 20 98 Room Air 98.1 09/07/19 14:01 2.0 Intake and Output 09/09/19 07:00 Intake Total 1572 ml Output Total 725 ml Balance 847 ml Intake Oral 1560 ml IV Total 12 ml Output Urine Total 725 ml Physical Exam Abdomen: Normal bowel sounds Heart: Regular rate General: No acute distress Lungs: Clear to auscultation Assessment Assessment Problems Medical Problems: (1) STEMI (ST elevation myocardial infarction) Status: Acute 1. ST elevated myocardial infarction. Opening of an acutely closed right coronary artery. Ejection fraction of 45-50%. Has done well. BP improved today. OK for home from CV viewpoint. Will add an ACEI with improvement in BP. Will call tomorrow for a follow up appointment. 2. Hyperlipidemia. Statin as above. Comment Review of Relevant I have reviewed the following items carlo (where applicable) has been applied. Labs Laboratory Tests Test 09/07/19 12:40 09/09/19 05:00 White Blood Count 8.4 x10^3/uL (4.0-11.0) Red Blood Count 4.46 x10^6/uL (4.30-5.70) Hemoglobin 15.5 g/dL (13.0-17.5) Hematocrit 45.8 % (39.0-53.0) Mean Corpuscular Volume 103 fL (79-100) Mean Corpuscular Hemoglobin 35 pg (25-35) Mean Corpuscular Hemoglobin Concent 34 g/dL (31-37) Red Cell Distribution Width 14.5 % (11.5-14.5) Platelet Count 242 x10^3/uL (140-400) Neutrophils (%) (Auto) 42 % (31-73) Lymphocytes (%) (Auto) 48 % (24-48) Monocytes (%) (Auto) 8 % (0-9) Eosinophils (%) (Auto) 2 % (0-3) Basophils (%) (Auto) 1 % (0-3) Neutrophils # (Auto) 3.5 x10^3/uL (1.8-7.7) Lymphocytes # (Auto) 4.0 x10^3/uL (1.0-4.8) Monocytes # (Auto) 0.7 x10^3/uL (0.0-1.1) Eosinophils # (Auto) 0.1 x10^3/uL (0.0-0.7) Basophils # (Auto) 0.1 x10^3/uL (0.0-0.2) Prothrombin Time 12.2 SEC (11.7-14.0) Prothromb Time International Ratio 0.9 (0.8-1.1) Activated Partial Thromboplast Time 26 SEC (24-38) Sodium Level 139 mmol/L (136-145) 140 mmol/L (136-145) Potassium Level 4.2 mmol/L (3.5-5.1) 4.0 mmol/L (3.5-5.1) Chloride Level 102 mmol/L (98-107) 106 mmol/L (98-107) Carbon Dioxide Level 21 mmol/L (21-32) 23 mmol/L (21-32) Anion Gap 16 (6-14) 11 (6-14) Blood Urea Nitrogen 11 mg/dL (8-26) 13 mg/dL (8-26) Creatinine 1.2 mg/dL (0.7-1.3) 0.8 mg/dL (0.7-1.3) Estimated GFR (Cockcroft-Gault) 59.3 94.8 BUN/Creatinine Ratio 9 (6-20) Glucose Level 140 mg/dL (70-99) 97 mg/dL (70-99) Calcium Level 9.1 mg/dL (8.5-10.1) 8.3 mg/dL (8.5-10.1) Magnesium Level 2.0 mg/dL (1.8-2.4) Total Bilirubin 0.5 mg/dL (0.2-1.0) Aspartate Amino Transf (AST/SGOT) 15 U/L (15-37) Alanine Aminotransferase (ALT/SGPT) 15 U/L (16-63) Alkaline Phosphatase 97 U/L (46-116) Troponin I Quantitative < 0.017 ng/mL (0.000-0.055) ZS-Aws-W-Type Natriuretic Peptide 203 pg/mL (0-124) Total Protein 7.6 g/dL (6.4-8.2) Albumin 3.8 g/dL (3.4-5.0) Albumin/Globulin Ratio 1.0 (1.0-1.7) Lipase 134 U/L (73-393) Triglycerides Level 79 mg/dL (0-150) Cholesterol Level 159 mg/dL (0-200) LDL Cholesterol, Calculated 91 mg/dL (0-100) VLDL Cholesterol, Calculated 16 mg/dL (0-40) Non-HDL Cholesterol Calculated 107 mg/dL (0-129) HDL Cholesterol 52 mg/dL (40-60) Cholesterol/HDL Ratio 3.1 Laboratory Tests Test 09/09/19 05:00 Sodium Level 140 mmol/L (136-145) Potassium Level 4.0 mmol/L (3.5-5.1) Chloride Level 106 mmol/L (98-107) Carbon Dioxide Level 23 mmol/L (21-32) Anion Gap 11 (6-14) Blood Urea Nitrogen 13 mg/dL (8-26) Creatinine 0.8 mg/dL (0.7-1.3) Estimated GFR (Cockcroft-Gault) 94.8 Glucose Level 97 mg/dL (70-99) Calcium Level 8.3 mg/dL (8.5-10.1) Triglycerides Level 79 mg/dL (0-150) Cholesterol Level 159 mg/dL (0-200) LDL Cholesterol, Calculated 91 mg/dL (0-100) VLDL Cholesterol, Calculated 16 mg/dL (0-40) Non-HDL Cholesterol Calculated 107 mg/dL (0-129) HDL Cholesterol 52 mg/dL (40-60) Cholesterol/HDL Ratio 3.1 Medications Current Medications Ondansetron HCl (Zofran) 4 mg PRN Q8HRS PRN IV NAUSEA/VOMITING; Start 09/07/19 at 12:45; Stop 09/08/19 at 12:44; Status DC Dopamine HCl/ Dextrose 0 ml @ As Directed STK-MED ONCE IV ; Start 09/07/19 at 13:01; Stop 09/07/19 at 13:01; Status DC Atropine Sulfate (ATROPINE 1mg SYRINGE) 1 mg STK-MED ONCE .ROUTE ; Start 09/07/19 at 13:01; Stop 09/07/19 at 13:01; Status DC Tirofiban/Sodium Chloride 250 ml @ As Directed STK-MED ONCE IV ; Start 09/07/19 at 13:06; Stop 09/07/19 at 13:06; Status DC Nitroglycerin (Nitroglycerin) 200 mcg 1X ONCE IART Last administered on 09/07/19at 14:00; Start 09/07/19 at 13:15; Stop 09/07/19 at 13:21; Status DC Verapamil HCl (Verapamil) 2.5 mg 1X ONCE IART Last administered on 09/07/19at 14:03; Start 09/07/19 at 13:15; Stop 09/07/19 at 13:21; Status DC Heparin Sodium (Porcine) (Heparin Sodium) 2,500 unit 1X ONCE IART Last administered on 09/07/19 14:03; Start 09/07/19 at 13:15; Stop 09/07/19 at 13:21; Status DC Heparin Sodium/ Sodium Chloride (HEPARIN for ARTERIAL LINE FLUSH) 1,000 unit 1X ONCE IART Last administered on 09/07/19 13:59; Start 09/07/19 at 13:15; Stop 09/07/19 at 13:21; Status DC Heparin Sodium/ Sodium Chloride (HEPARIN for ARTERIAL LINE FLUSH) 1,000 unit 1X ONCE IART Last administered on 09/07/19 13:59; Start 09/07/19 at 13:15; Stop 09/07/19 at 13:21; Status DC Midazolam HCl (Versed) 2 mg 1X ONCE IV Last administered on 09/07/19 14:00; Start 09/07/19 at 13:15; Stop 09/07/19 at 13:21; Status DC Fentanyl Citrate (Fentanyl 2ml Vial) 100 mcg 1X ONCE IV Last administered on 09/07/19 14:01; Start 09/07/19 at 13:15; Stop 09/07/19 at 13:21; Status DC Iodixanol (Visipaque 320) 100 ml 1X ONCE IART Last administered on 09/07/19 14:02; Start 09/07/19 at 13:15; Stop 09/07/19 at 13:21; Status DC Heparin Sodium (Porcine) (Heparin Sodium) 5,000 unit 1X ONCE IV Last administered on 09/07/19 14:04; Start 09/07/19 at 13:15; Stop 09/07/19 at 1 3:21; Status DC Tirofiban/Sodium Chloride 250 ml @ 0 mls/hr CONT PRN IV PER PROTOCOL Last administered on 09/07/19at 14:02; Start 09/07/19 at 13:15; Stop 09/08/19 at 07:14; Status DC Info (CONTRAST GIVEN -- Rx MONITORING) 1 each PRN DAILY PRN MC SEE COMMENTS; Start 09/07/19 at 13:30; Stop 09/09/19 at 13:29 Nitroglycerin (Nitroglycerin) 200 mcg 1X ONCE ICAR Last administered on 09/07/19at 14:00; Start 09/07/19 at 13:30; Stop 09/07/19 at 13:31; Status DC Sodium Chloride 1,000 ml @ 1,000 mls/hr 1X ONCE IV Last administered on 09/07/19at 13:59; Start 09/07/19 at 13:30; Stop 09/07/19 at 14:29; Status DC Prasugrel (Effient) 60 mg 1X ONCE PO Last administered on 09/07/19at 14:01; Start 09/07/19 at 13:45; Stop 09/07/19 at 13:46; Status DC Prasugrel (Effient) 10 mg STK-MED ONCE .ROUTE ; Start 09/07/19 at 13:54; Stop 09/07/19 at 13:54; Status DC Fentanyl Citrate (Fentanyl 2ml Vial) 100 mcg STK-MED ONCE .ROUTE ; Start 09/07/19 at 14:22; Stop 09/07/19 at 14:22; Status DC Midazolam HCl (Versed) 2 mg STK-MED ONCE .ROUTE ; Start 09/07/19 at 14:22; Stop 09/07/19 at 14:22; Status DC Heparin Sodium (Porcine) (Heparin Sodium) 10,000 unit STK-MED ONCE .ROUTE ; Start 09/07/19 at 14:22; Stop 09/07/19 at 14:22; Status DC Verapamil HCl (Verapamil) 5 mg STK-MED ONCE .ROUTE ; Start 09/07/19 at 14:22; Stop 09/07/19 at 14:22; Status DC Nitroglycerin (Nitroglycerin) 200 mcg STK-MED ONCE .ROUTE ; Start 09/07/19 at 14:22; Stop 09/07/19 at 14:22; Status DC Prasugrel (Effient) 10 mg DAILYWBKFT PO Last administered on 09/09/19at 09:01; Start 09/08/19 at 11:30 Aspirin (Ecotrin) 325 mg DAILYWBKFT PO Last administered on 09/09/19 09:01; Start 09/08/19 at 11:30 Metoprolol Tartrate (Lopressor) 12.5 mg BID PO Last administered on 09/09/19at 09:01; Start 09/08/19 at 11:30 Atorvastatin Calcium (Lipitor) 20 mg QHS PO Last administered on 09/08/19at 21:39; Start 09/08/19 at 21:00 Active Scripts Active Clopidogrel (Clopidogrel Bisulfate) 75 Mg Tablet 1 Tab PO DAILY Reported Vitamin B12 (Cyanocobalamin (Vitamin B-12)) 2,500 Mcg Tab.chew 1,000 Mcg PO DAILY Zyrtec (Cetirizine Hcl) 10 Mg Tablet 1 Tab PO DAILY Zantac (Ranitidine Hcl) 150 Mg Tablet 150 Mg PO DAILY Vitamin D3 (Cholecalciferol (Vitamin D3)) 1,000 Unit Tablet 1 Tab PO DAILY Vitals/I & O Vital Sign - Last 24 Hours 09/08/19 09/08/19 09/08/19 09/08/19 11:00 12:25 15:00 17:29 Temp 98.2 98.0 97.5 98.2 98.0 97.5 Pulse 76 81 82 74 Resp 17 16 16 B/P (MAP) 105/61 (76) 103/71 108/63 (78) 120/67 (84) Pulse Ox 96 100 100 O2 Delivery Room Air Room Air Room Air 09/08/19 09/08/19 09/08/19 09/08/19 19:00 20:00 21:39 23:00 Temp 97.9 97.9 97.9 97.9 Pulse 77 77 75 Resp 16 16 B/P (MAP) 114/62 (79) 114/62 116/64 (81) Pulse Ox 97 94 O2 Delivery Room Air Room Air Room Air 09/09/19 09/09/19 09/09/19 03:00 07:42 09:01 Temp 97.9 98.1 97.9 98.1 Pulse 71 78 78 Resp 20 20 B/P (MAP) 107/69 (82) 125/61 (82) 125/61 Pulse Ox 97 98 O2 Delivery Room Air Room Air Intake and Output 09/08/19 09/08/19 09/09/19 15:00 23:00 07:00 Intake Total 972 ml 100 ml 500 ml Output Total 725 ml Balance 247 ml 100 ml 500 ml JEAN COTTER MD Sep 09, 2019 09:28
[2019-09-09] MEDS ORDERED: PRAS10TA9 PO (10:39)
[2019-09-09] MEDS ORDERED: ATOR20TA58 PO (10:40)
[2019-09-09] MEDS ORDERED: LISI-338 PO (10:40)
[2019-09-09] MEDS ORDERED: METO50TA4 PO (10:40)
[2019-09-09] MEDS ORDERED: ASPI325T8 PO (10:46)
--- NOTE | 2019-09-09 11:23 | NUR ---
Discharge Note: YA[facility] QUICK Discharge instructions and discharge home medications reviewed with Patient and a copy given. All questions have been answered and understanding verbalized. Prescriptions given to patient
--- NOTE | 2019-09-09 12:59 | PDOC ---
[facility] PROGRESS NOTE Chief Complaint Chief Complaint Chest pain, trouble breathing ST elevated myocardial infarction Hyperlipidemia History of Present Illness History of Present Illness 09/09/2019 Pt was seen and examined. Pt reports feeling much better now and is ready for discharge Denies any acute complaints Patient is a 74 year old male who was brought here by EMS due to chest pain and trouble breathing started about 1 hour ago. EMS did EKG on the field, shown ST elevation in the in the inferior lead, EMS call here, we activated code STEMI. He has history of hypertension, previous coronary disease. No history of diabetes. Patient denies any injury. Patient also complaint of stomach ache. He denies any nausea vomiting. 09/08: Patient seen and examined in ICU. Patient is post cardiac catheterization day 1. Patient is alert and oriented X3 and is sitting up in the bedside chair speaking frequently. HAMIDA arias. Vitals/I&O Vitals/I&O: Vital Signs Date Time Temp Pulse Resp B/P (MAP) Pulse Ox O2 Delivery O2 Flow Rate FiO2 09/09/19 09:01 78 125/61 09/09/19 08:00 Room Air 09/09/19 07:42 98.1 20 98 98.1 I & O 09/08/19 09/08/19 09/09/19 15:00 23:00 07:00 Intake Total 972 ml 100 ml 500 ml Output Total 725 ml Balance 247 ml 100 ml 500 ml Physical Exam General: Alert, Oriented X3, Cooperative, No acute distress Heart: Regular rate Lungs: Clear Abdomen: Normal bowel sounds Extremities: No edema Skin: No rashes, No breakdown, No significant lesion Labs Labs: Laboratory Tests Test 09/09/19 05:00 Sodium Level 140 mmol/L (136-145) Potassium Level 4.0 mmol/L (3.5-5.1) Chloride Level 106 mmol/L (98-107) Carbon Dioxide Level 23 mmol/L (21-32) Anion Gap 11 (6-14) Blood Urea Nitrogen 13 mg/dL (8-26) Creatinine 0.8 mg/dL (0.7-1.3) Estimated GFR (Cockcroft-Gault) 94.8 Glucose Level 97 mg/dL (70-99) Calcium Level 8.3 mg/dL (8.5-10.1) Triglycerides Level 79 mg/dL (0-150) Cholesterol Level 159 mg/dL (0-200) LDL Cholesterol, Calculated 91 mg/dL (0-100) VLDL Cholesterol, Calculated 16 mg/dL (0-40) Non-HDL Cholesterol Calculated 107 mg/dL (0-129) HDL Cholesterol 52 mg/dL (40-60) Cholesterol/HDL Ratio 3.1 Review of Systems Review of Systems: Denies CP Denies SOB Denies N/V/D Assessment and Plan Assessmemt and Plan Problems Medical Problems: (1) STEMI (ST elevation myocardial infarction) Status: Acute Chest pain, trouble breathing ST elevated myocardial infarction Hyperlipidemia Plan; 1) Plan to D/C today 2) Wrote prescription for outpatient medications 3) Pt to continue to f/u with cardiology 4) PT/OT 5) DVT prophylaxis 6) Full code Comment Review of Relevant I have reviewed the following items carlo (where applicable) has been applied. Medications: Current Medications Medications (Trade) Dose Ordered Sig/Rick Route PRN Reason Start Time Stop Time Status Last Admin Dose Admin Atorvastatin Calcium (Lipitor) 20 mg QHS PO 09/08/19 21:00 09/09/19 11:25 DC 09/08/19 21:39 RIC HORTON III DO Sep 09, 2019 12:59
--- NOTE | 2019-09-09 17:50 | DS ---
DATE OF DISCHARGE: 09/09/2019 ADMISSION DIAGNOSIS: Acute myocardial infarction. DISCHARGE DIAGNOSIS: Postoperative cardiac catheterization with 2 new stents placed (he already had two other stents 15 years ago). HOSPITAL COURSE: The patient is a pleasant elderly male, who presented with chest pain. He had elevation of his ST segments on his EKG. He was taken for emergent cardiac catheterization. We did place 2 stents. Today, I saw and examined, he looked great. We discharged to home on Effient, Zocor, lisinopril, metoprolol and aspirin. TOTAL TIME: 32 minutes. DISPOSITION: Home. ACTIVITY: As tolerated. DIET: Low sodium. MEDICATIONS: Please see MRAD. TOTAL TIME: 32 minutes. RIC HORTON DO DR: EFREN/ta JOB#: [id number] / [id number]
[2019-09-10] MEDS ORDERED: LISINOPRIL 5 MG TABLET. PO SCH (09:00)
[2019-09-10] MEDS ORDERED: METOPROLOL SUCC 24HR ER 25 MG TAB.ER.24H. PO SCH (09:00)
== END 2019-09-09 11:25 | disposition home or self-care (01) | DRG 246 ==
LOC: ER 12:33 → 1 WEST ICU 12:43 → 2 SOUTH 09-08 17:25
PROVIDERS: ADMIT Internal Medicine; ATTEND Internal Medicine
PROC: 027035Z Dilation of Coronary Artery, One Artery with Two Drug-eluting Intraluminal Devices, Percutaneous Approach (ICD-10-PCS; principal; 2019-09-07)
PROC: 3E033PZ Introduction of Platelet Inhibitor into Peripheral Vein, Percutaneous Approach (ICD-10-PCS; 2019-09-07)
PROC: 4A023N7 Measurement of Cardiac Sampling and Pressure, Left Heart, Percutaneous Approach (ICD-10-PCS; 2019-09-07)
PROC: B2111ZZ Fluoroscopy of Multiple Coronary Arteries using Low Osmolar Contrast (ICD-10-PCS; 2019-09-07)
DX: T82.855A Stenosis of coronary artery stent, initial encounter (principal); I21.19 ST elevation (STEMI) myocardial infarction involving other coronary artery of inferior wall; R65.11 Systemic inflammatory response syndrome (SIRS) of non-infectious origin with acute organ dysfunction; E78.00 Pure hypercholesterolemia, unspecified; E78.5 Hyperlipidemia, unspecified; K21.9 Gastro-esophageal reflux disease without esophagitis; I10 Essential (primary) hypertension; I25.10 Atherosclerotic heart disease of native coronary artery without angina pectoris; Z90.49 Acquired absence of other specified parts of digestive tract; Z95.5 Presence of coronary angioplasty implant and graft; Z79.899 Other long term (current) drug therapy; Z82.49 Family history of ischemic heart disease and other diseases of the circulatory system
CPT/HCPCS: 36415; 71045; 80048; 80053; 80061; 83690; 83735; 83880; 84484; 85025; 85610; 85730; 92941; 93005; 93306; 93458; 99152; 99153; C1725; C1769; C1874; C1892; J1644; J2250; J3010; J3490; J7030; Q9967; 99285-25; C1713; G0378; J3246